=== PATIENT | female | born 1995 | race Caucasian/White ===

== ENCOUNTER 2019-12-17 13:43 | Outpatient (CLI) | payer OTHER, SELFPAY ==
[2019-12-19 11:58] LABS: TB Skin Test Erythema 0 mm; TB Skin Test Induration 0 mm (0-10); TB Skin Test Site Left Arm
[2019-12-19 11:59] LABS: TB Skin Test Interpretation Negative (Negative)
== END 2019-12-17 13:44 | disposition home or self-care (01) ==
LOC: CHSLAB 13:46
PROVIDERS: PCP Family Medicine; Visit Provider Family Medicine
DX: Z11.1 Encounter for screening for respiratory tuberculosis (principal)
CPT/HCPCS: 36415; 86580

== ENCOUNTER 2020-04-26 15:30 | Emergency (ER) | payer OTHER, SELFPAY ==
[2020-04-26 15:30] VITALS: BP 115/72; PULSE 99; RESP 16; TEMP 36.4; O2SAT 99
[2020-04-26 15:44] VITALS: O2SAT 100
[2020-04-26 15:45] VITALS: O2SAT 100
--- NOTE | 2020-04-26 16:07 | ECG_ITS ---
Measurements Intervals [place] Rate: 100 P: 81 OH: 140 QRS: 89 QRSD: 88 T: 35 QT: 329 QTc: 425 Interpretive Statements SINUS TACHYCARDIA MINIMAL Q WAVES- INFERIOR LEADS BORDERLINE ECG Electronically Signed On 04-26-2020 19:18:43 [employer] by Martin Cruz D.O.
[2020-04-26] MEDS: LORazepam (*CRX) 0.5 MG TABLET PO (16:16)
[2020-04-26] MEDS: IBUPROFEN 400 MG TABLET PO (16:16)
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
[2020-04-26 17:03] VITALS: BP 108/62; PULSE 102; RESP 16; O2SAT 99
[2020-04-26] MEDS: ONDANSETRON HCL ODT 4 MG TABLET PO (17:03)
== END 2020-04-26 17:04 | disposition home or self-care (01) ==
PROVIDERS: Emergency Provider Family Medicine
DX: T14.90XA Injury, unspecified, initial encounter (principal); Y04.0XXA Assault by unarmed brawl or fight, initial encounter
CPT/HCPCS: 93005; 99283; A9270

== ENCOUNTER 2020-12-27 15:12 | Outpatient (CLI) | payer OTHER, SELFPAY ==
--- NOTE | ~2020-12-27 | XR_ITS ---
EXAMINATION: XR wrist RT min 3V EXAM DATE: 12/27/2020 15:28 INDICATION: Pain in R wrist traveling up arm for 1 wk after fall . Initial encounter. TECHNIQUE: Right wrist frontal, frontal with ulnar deviation, oblique and lateral projections obtain ed and reviewed. There is no prior study for comparison. FINDINGS: Right wrist scapholunate joint space is maintained. There are no acute fractures or disloca tions identified. There is no subcutaneous gas. The soft tissue is unremarkable. There are no rad iopaque foreign bodies. IMPRESSION: 1. XR wrist RT min 3V exam without acute osseous findings. Reviewed, dictated and finalized at location B.
== END 2020-12-27 15:13 | disposition home or self-care (01) ==
LOC: CHSLAB 15:14
PROVIDERS: PCP Family Medicine; Visit Provider Family Medicine
DX: M25.531 Pain in right wrist (principal)
CPT/HCPCS: 73110

== ENCOUNTER 2021-06-06 14:59 | Outpatient (CLI) | payer OTHER, SELFPAY ==
[2021-06-06 15:16] LABS: Basophils Absolute Auto 0.04 K/mm3 (0.00-0.10); Basophils Percent Auto 0.6 % (0.0-1.0); Eosinophils Absolute Auto 0.14 K/mm3 (0.02-0.50); Hematocrit 35.9 % (35.0-49.0); Immature Granulocyte Absolute 0.02 K/mm3 (0.00-0.00); Immature Granulocyte Percent A 0.3 % (0.0-0.0); Lymphocytes Absolute Auto 1.54 K/mm3 (1.10-4.50); Mean Corpuscular HGB Conc 33.4 g/dL (32.0-36.0); Mean Corpuscular Hemoglobin 29.8 pg (27.0-31.0); Mean Corpuscular Volume 89.1 fL (78.0-102.0); Mean Platelet Volume 10.1 fl (9.2-11.8); Monocytes Absolute Auto 0.52 K/mm3 (0.10-0.90); Monocytes Percent Auto 7.4 % (2.0-11.0); Neutrophils Absolute Auto 4.7 K/mm3 (1.7-7.2); Neutrophils Percent Auto 67.7 % (50.0-70.0); Platelet Count Result 207 K/mm3 (150-420); Red Blood Count 4.03 M/mm3 (4.20-5.40); Red Cell Distribution Width 11.3 % (11.6-14.4)
[2021-06-06 15:51] LABS: Alanine Aminotransferase 23 U/L (14-59); Albumin Level 4.1 g/dL (3.4-5.0); Alkaline Phosphatase 69 U/L (46-116); Amylase 45 U/L (25-115); Anion Gap 10 mmol/L (8-16); Aspartate Amino Transferase 14 U/L (15-37); Bilirubin,Total 0.3 mg/dL (0.00-1.00); Blood Urea Nitrogen 10 mg/dL (7-18); Carbon Dioxide 29 mmol/L (21-32); Chloride 103 mmol/L (98-108); Estimated Glomerular Filt Rate > 60; Glucose 103 mg/dL (70-99); Lipase 63 U/L (73-393); Osmolality Calculated 293 mOsm/kg (285-295); Potassium 3.8 mmol/L (3.5-5.1); Sodium 142 mmol/L (136-145); Thyroid Stimulating Hormone 2.31 uIU/mL (0.36-3.74); Total Protein 7.2 g/dL (6.4-8.2)
== END 2021-06-06 15:00 | disposition home or self-care (01) ==
LOC: CHSLAB 15:01
PROVIDERS: PCP Family Medicine; Visit Provider Family Medicine
DX: R10.84 Generalized abdominal pain (principal); K92.1 Melena; R53.83 Other fatigue
CPT/HCPCS: 36415; 80053; 82150; 83690; 84443; 85025

== ENCOUNTER 2021-06-09 12:53 | Outpatient (CLI) | payer OTHER, SELFPAY ==
[2021-06-09 13:24] LABS: Occult Blood Negative (Negative)
[2021-06-09 13:25] LABS: Occult Blood Negative (Negative)
== END 2021-06-09 12:54 | disposition home or self-care (01) ==
LOC: CHSLAB 12:54
PROVIDERS: PCP Family Medicine; Visit Provider Family Medicine
DX: R10.84 Generalized abdominal pain (principal); K92.1 Melena
CPT/HCPCS: 82272

== ENCOUNTER 2022-04-11 12:56 | Outpatient (CLI) | payer OTHER, SELFPAY ==
[2022-04-11 13:30] LABS: Influenza Control Valid (Valid)
== END 2022-04-11 12:57 | disposition home or self-care (01) ==
LOC: CHSLAB 12:59
DX: R05.9 Cough, unspecified (principal)
CPT/HCPCS: 87804

== ENCOUNTER 2022-06-26 16:02 | Emergency (ER) | payer OTHER, SELFPAY ==
--- NOTE | ~2022-06-26 | XR_ITS ---
EXAMINATION: XR wrist LT min 3V DATE: 06/26/2022 16:31 INDICATION: Left wrist injury and pain. TECHNIQUE: 4 views of left wrist were obtained. COMPARISON: None. FINDINGS: Bone alignment is normal. No fracture. Joint spaces are normal. IMPRESSION: 1. Normal left wrist. Reviewed, dictated and finalized at location A. NG CAPTAIN IMPRESSION: 1. Normal left wrist.
[2022-06-26 16:15] VITALS: BP 135/72; PULSE 85; RESP 18; TEMP 36.4; O2SAT 100
--- NOTE | 2022-06-26 16:44 | ED.GENADULT ---
HPI - General Adult General Chief complaint: Extremity Injury, Upper Stated complaint: Picked up a child at work and her wrist popped Time Seen by Provider: 06/26/22 16:08 History of Present Illness HPI narrative: The patient is an otherwise healthy 26-year-old woman who picked up the child at her workplace today, whereby she felt a pop in her left wrist and developed pain in the left wrist area. The pain does shoot up her left arm to the elbow region. Able to flex and extend the left wrist and the left elbow without much difficulty. Has tenderness in the left wrist. No other injuries. No falls. No other trauma. With the complaints. Distant history of left wrist laceration on the volar aspect that was repaired years ago. LMP started today. Related Data Home Medications Medication Instructions Recorded Confirmed Depo-Provera See Rx Instructions .Route .COMPLEX 05/08/19 05/08/19 Allergies Allergy/AdvReac Type Severity Reaction Status Date / Time No Known Allergies Allergy Verified 06/26/22 16:27 Review of Systems Review of Systems: All systems reviewed & are unremarkable except as noted in HPI and below Constitutional: Constitutional: Reports as per HPI, Reports no additional constitutional complaints, Denies chills, Denies excessive sweating, Denies fatigue, Denies fever(s), Denies headache(s) and Denies weakness Eyes: Eyes: Reports as per HPI, Reports no additional eye complaints, Denies change in vision and Denies photophobia ENT: Reports system reviewed and no additional complaints, except as documented, Reports as per HPI, Denies dysphagia, Denies vertigo, Denies dizziness, Denies headache(s), Denies lip swelling, Denies nasal congestion, Denies sore throat, Denies throat swelling and Denies tongue swelling Cardiovascular: Cardiovascular: Reports as per HPI, Reports no additional cardiovascular complaints, Denies chest pain, Denies syncope, Denies rapid heart rate and Denies dyspnea Respiratory: Respiratory: Reports as per HPI, Reports no additional respiratory complaints, Denies chest congestion, Denies cough, Denies dyspnea and Denies wheezing Gastrointestinal: Gastrointestinal: Reports as per HPI, Reports no additional gastrointestinal complaints, Denies abdominal pain, Denies constipation, Denies dysphagia, Denies diarrhea, Denies nausea and Denies vomiting Genitourinary: Genitourinary: Reports as per HPI, Denies hematuria, Denies urinary frequency, Denies dysuria, Denies urinary incontinence and Denies urinary urgency Musculoskeletal: Musculoskeletal: Reports no additional musculoskeletal complaints, Denies back pain, Denies myalgias, Denies arthralgias, Denies joint swelling and Denies numbness Comments: No other complaints except to the left wrist on the left elbow with mild tenderness but no swelling Integumentary/Breasts: Skin/Breast: Reports system reviewed and no additional complaints, except as docu, Denies pruritus, Denies erythema, Denies rash and Denies skin ulcer Neurologic: Reports system reviewed and no additional complaints, except as documented, Reports as per HPI, Denies confusion, Denies vertigo, Denies dizziness, Denies syncope, Denies headache(s), Denies focal weakness, Denies numbness and Denies weakness Psychiatric: Psychiatric: Reports as per HPI, Denies anxiety, Denies confusion, Denies depression, Denies homicidal ideation and Denies suicidal ideation Endocrine: Endocrine: Reports no additional endocrine complaints, Denies excessive sweating, Denies fatigue, Denies polydipsia and Denies polyuria Hematologic/Lymphatic: Hematologic/Lymphatic: Reports no additional hematologic/lymphatic complaints, Denies easy bleeding and Denies easy bruising Allergic/Immunologic: Allergic/Immunologic: Reports no additional allergic/immunologic complaints, Denies lip swelling, Denies throat swelling, Denies tongue swelling and Denies wheezing PMFSH Past Medical History Medical History (Updated 06/26/22 @ 1
[2022-06-26] MEDS: IBUPROFEN 600 MG TABLET PO (17:01)
[2022-06-26] MEDS: ACETAMINOPHEN 500 MG TABLET 1000 MG PO (17:01)
[2022-06-26] MEDS: CYCLOBENZAPRINE HCL 10 MG TABLET PO (17:01)
== END 2022-06-26 17:07 | disposition home or self-care (01) ==
PROVIDERS: Emergency Provider Emergency Medicine; PCP Family Medicine
DX: S63.502A Unspecified sprain of left wrist, initial encounter (principal); X50.0XXA Overexertion from strenuous movement or load, initial encounter; Y99.0 Civilian activity done for income or pay
CPT/HCPCS: 73110; 99283; A9270

== ENCOUNTER 2022-07-12 15:58 | Outpatient (CLI) | payer OTHER, SELFPAY ==
--- NOTE | ~2022-07-12 | XR_ITS ---
EXAM: XR wrist LT min 3V DATE: 07/12/2022 16:40 HISTORY: LEFT LATERAL WRIST PAIN SINCE INJURY JUN 26, 2022. . COMPARISON: None available. FINDINGS: Normal mineralization. No fracture or dislocation. No lytic or blastic lesion. Joint space s are maintained. No erosion or periosteal change. Soft tissues within normal limits. IMPRESSION: Normal left wrist radiograph findings. Reviewed, dictated and finalized at location K.
== END 2022-07-12 15:59 | disposition home or self-care (01) ==
LOC: CHSIMG 15:59
PROVIDERS: PCP Family Medicine; Visit Provider Family Medicine
DX: M25.532 Pain in left wrist (principal)
CPT/HCPCS: 73110

== ENCOUNTER 2022-07-28 16:02 | Outpatient (RCR) | payer OTHER, SELFPAY ==
--- NOTE | 2022-07-28 17:30 | BUOTOPEVAL ---
Assessment and note entered by Anna Andre, OT Evaluation Information Assessment Status Evaluation Diagnosis L wrist pain Onset 06/26/22 Subjective Information Patient reports that she picked up a child at work and her L wrist popped and immediately began hurting. Patient has had an X-ray. She states that the pain continues and has not got better. 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 Patient is wearing a compression glove with wrist support strap and states that she is wearing this at all times. Patient reports that it is painful to lift anything over 2#, perform handwriting, pour a glass of milk, and perform self-care tasks. Patient reports that approximately 3 years ago she fell and cut her L wrist (volar wrist) and had to have stitches. Reported Pain Level Pain Score 5: Self Report Additional Pain Score Comments patient is taking ibruopfen Assessment OT Clinical Summary Patient is a 26 year old female who presents to outpatient OT with L wrist pain that began after lifting a child on 06/26/22. Pain has not improved and is impacting her ability to grasp, lift, and carry objects as well as perform handwriting, ADLs and IADLs. 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 She would benefit from skilled OT services in order to decrease pain and increase strength for functional independence. Plan of Care Interventions Therapeutic Exercise,Manual Therapy,Neuro Re- education,Therapeutic Activities,Electrical Stimulation,Self-Care/Home Management,Ultrasound OT Services Indicated Yes Treatment Frequency and 2x/week for up to 12 sessions Duration These treatments will address the objective and functional deficits as defined above. The patient will be advanced safely and appropriately in order for the patient to progress towards his/her prior level of function. Additional exercises will be introduced and as well as a comprehensive home exercise program upon discharge, if needed, ?to ensure carryover of functional gains achieved in the clinic. This treatment plan has been reviewed and agreement upon by the patient.
--- NOTE | 2023-04-26 14:13 | PCOTNOTE ---
The patient is discharged due to >30 days since last treatment.
== END 2022-08-31 23:59 | disposition home or self-care (01) ==
LOC: CHSOT 16:02
PROVIDERS: PCP Family Medicine; Visit Provider Family Medicine
DX: M25.532 Pain in left wrist (principal)
CPT/HCPCS: 97035; 97110; 97140; 97165; 97530